=== PATIENT | female | born 1970 ===

== ENCOUNTER 2017-02-20 19:01 | Emergency (ER) | payer OTHER ==
[2017-02-20 19:18] VITALS: BP 125/70; PULSE 65; RESP 16; TEMP 99; O2SAT 100
--- NOTE | 2017-02-20 20:22 | ED PDOC ---
HPI: Female Pain Time Seen by Provider: 02/20/17 19:26 Chief Complaint (Nursing): Female Genitourinary Chief Complaint (Provider): vaginal discharge History Per: Patient History/Exam Limitations: no limitations Onset/Duration Of Symptoms: Days (x 1 year) Current Symptoms Are (Timing): Intermittent Episodes Additional Complaint(s): Padmini Gómez is a 46 year old female, with no previous medical history, who presents to the ED fro the evaluation of white vaginal discharge intermittently ongoing for the past year. Patient reports discharge after intercourse with her . She reports her and her are both monogamous and she was negative for STDs. Patient reports seeing an OBGYN 1 year ago who informed the patient she did not have anything. Patient denies any vaginal bleeding, urinary symptoms or abdominal pain. PMD: none provided Abnormal Vaginal Bleeding: No Past Medical History Reviewed: Historical Data, Nursing Documentation, Vital Signs Vital Signs: Last Vital Signs Temp 99.0 F 02/20/17 19:14 Pulse 65 02/20/17 19:14 Resp 16 02/20/17 19:14 BP 125/70 02/20/17 19:14 Pulse Ox 100 02/20/17 19:14 - Medical History PMH: No Chronic Diseases - Surgical History Surgical History: No Surg Hx - Family History Family History: States: Unknown Family Hx - Home Medications Home Medications: Ambulatory Orders Medication Instructions Recorded Doxycycline Monohydrate 100 mg PO BID #7 capsule 02/20/17 Fluconazole 200 mg PO ONCE #1 tablet 02/20/17 - Allergies Allergies/Adverse Reactions: Allergies Allergy/AdvReac Type Severity Reaction Status Date / Time acetaminophen [From Percocet] Allergy VOMITING Verified 02/20/17 19:14 codeine Allergy VOMITING Verified 02/20/17 19:14 morphine Allergy VOMITING Verified 02/20/17 19:14 oxycodone [From Percocet] Allergy VOMITING Verified 02/20/17 19:14 Review of Systems ROS Statement: Except As Marked, All Systems Reviewed And Found Negative Constitutional: Negative for: Fever, Chills Genitourinary Female: Positive for: Vaginal Discharge. Negative for: Dysuria, Frequency, Incontinence, Pelvic Pain Physical Exam - Reviewed Nursing Documentation Reviewed: Yes Vital Signs Reviewed: Yes - Physical Exam Appears: Positive for: Well, Non-toxic, No Acute Distress Gastrointestinal/Abdominal: Positive for: Normal Exam, Bowel Sounds, Soft. 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 Provider Scribe Attestation: All medical record entries made by the Scribe were at my direction and personally dictated by me. I have reviewed the chart and agree that the record accurately reflects my personal performance of the history, physical exam, medical decision making, and the department course for this patient. I have also personally directed, reviewed, and agree with the discharge instructions and disposition. Disposition - Clinical Impression Clinical Impression: Vaginal discharge - Disposition [facility] Disposition Time: 20:00 Condition: STABLE Prescriptions: Doxycycline Monohydrate 100 mg PO BID #7 capsule Fluconazole 200 mg PO ONCE #1 tablet Instructions: Pelvic Inflammatory Disease (ED), Vaginal Discharge (ED) Forms: [employer] (Azeri) Print Language: GUAMANIAN
== END 2017-02-20 20:25 | disposition home or self-care (01) ==
LOC: H.ER 19:01
DX: N73.9 Female pelvic inflammatory disease, unspecified (principal)

== ENCOUNTER 2017-06-03 15:04 | Emergency (ER) | payer OTHER ==
[2017-06-03 15:31] VITALS: PULSE 68; RESP 16; TEMP 99; O2SAT 100
--- NOTE | 2017-06-03 16:49 | ED PDOC ---
HPI: Back Time Seen by Provider: 06/03/17 15:40 Chief Complaint (Nursing): Back Pain Chief Complaint (Provider): Back pain History Per: Patient History/Exam Limitations: no limitations Onset/Duration Of Symptoms: Mins Current Symptoms Are (Timing): Still Present Quality Of Discomfort: "Pain" Additional Complaint(s): The patient is a 46yo female, presents to the ED for evaluation of back pain; patient states earlier today, she was attempting to bed down and she heard a "snap" after which her back pain started. Patient reports she has had similar symptoms 2x times before and was seen in the ED both times, she denies following up with a neurologist of back specialist for her symptoms. Patient reports she attempted to go to work today but was unable to stand the pain, prompting her visit to the ED. She denies any radiation of the pain, numbness, tingling, hematuria, incontinence and abdominal pain. Patient offers no additional medical complaints. Past Medical History Reviewed: Historical Data, Nursing Documentation, Vital Signs Vital Signs: Last Vital Signs Temp 99.0 F 06/03/17 15:29 Pulse 68 06/03/17 15:29 Resp 16 06/03/17 15:29 BP Pulse Ox 100 06/03/17 15:29 - Medical History PMH: No Chronic Diseases - Surgical History Surgical History: No Surg Hx - Family History Family History: States: Unknown Family Hx - Social History Current smoker - smoking cessation education provided: No Alcohol: None Drugs: Denies - Home Medications Home Medications: Ambulatory Orders Medication Instructions Recorded Doxycycline Monohydrate 100 mg PO BID #7 capsule 02/20/17 Fluconazole 200 mg PO ONCE #1 tablet 02/20/17 Cyclobenzaprine [Cyclobenzaprine 10 mg PO Q8 PRN #30 tab 06/03/17 HCl] Meloxicam [Mobic] 7.5 mg PO DAILY PRN #30 tab 06/03/17 Nitrofurantoin Macrocrystals 1 cap PO BID #14 cap 06/03/17 [Macrobid] - Allergies Allergies/Adverse Reactions: Allergies Allergy/AdvReac Type Severity Reaction Status Date / Time acetaminophen [From Percocet] Allergy VOMITING Verified 02/20/17 19:14 codeine Allergy VOMITING Verified 02/20/17 19:14 morphine Allergy VOMITING Verified 02/20/17 19:14 oxycodone [From Percocet] Allergy VOMITING Verified 02/20/17 19:14 Review of Systems ROS Statement: Except As Marked, All Systems Reviewed And Found Negative Genitourinary Female: Negative for: Dysuria, Frequency, Incontinence, Hematuria Musculoskeletal: Positive for: Back Pain Neurological: Negative for: Weakness, Numbness Physical Exam - Reviewed Nursing Documentation Reviewed: Yes Vital Signs Reviewed: Yes - Physical Exam Appears: Positive for: Non-toxic, Uncomfortable Head Exam: Positive for: ATRAUMATIC, NORMAL INSPECTION, NORMOCEPHALIC Skin: Positive for: Normal Color. Negative for: Rash Eye Exam: Positive for: Normal appearance Neck: Positive for: Normal, Supple Cardiovascular/Chest: Positive for: Regular Rate, Rhythm Respiratory: Positive for: Normal Breath Sounds. Negative for: Accessory Muscle Use, Respiratory Distress Gastrointestinal/Abdominal: Positive for: Normal Exam, Soft. Negative for: Tenderness Back: Positive for: Normal Inspection, Other (bilateral paralumbar tenderness). Negative for: L CVA Tenderness, R CVA Tenderness, Vertebral Tenderness Extremity: Positive for: Normal ROM. Negative for: Deformity, Swelling Neurologic/Psych: Positive for: Alert, Oriented. Negative for: Motor/Sensory Deficits - Laboratory Results Urine POC: Negative - ECG O2 Sat by Pulse Oximetry: 100 (RA) Pulse Ox Interpretation: Normal - Progress ED Course And Treament: LS spine x-ray: no fx Urine culture sent. Re-evaluation Time: 17:40 Condition: Re-examined, Improving,but remains with symptoms Medical Decision Making Medical Decision Making: Time: 1545 Impression: Back pain Plan: -- Flexeril 10 mg PO -- Toradol 15 mg IM -- XR lumbar spine Reassess Scribe Attestation: Documented by Felecia Rodriguez acting as a scribe for TORRI Jordan Provider Attestation: All medical record entries made by the Scribe were at my direction and personally dictated by me. I have reviewed the chart and agree that the record accurately reflects my personal performance of the history, physical exam, medical decision making, and the department course for this patient. I have also personally directed, reviewed, and agree with the discharge instructions and disposition. Disposition - Clinical Impression Clinical Impression: Back pain, UTI (urinary tract infection) - Patient ED Disposition Is Patient to be Admitted: No - Disposition Referrals: [facility] [Outside] [facility] [Outside] Disposition: Routine/Home Disposition Time: 17:40 Condition: IMPROVED Prescriptions: Cyclobenzaprine [Cyclobenzaprine HCl] 10 mg PO Q8 PRN #30 tab PRN Reason: Muscle Spasm Meloxicam [Mobic] 7.5 mg PO DAILY PRN #30 tab PRN Reason: Pain, Mild (1-3) Nitrofurantoin Macrocrystals [Macrobid] 1 cap PO BID #14 cap Instructions: Acute Low Back Pain (ED), Urinary Tract Infection in Women (ED) Forms: [employer] (Occitan), [facility] ED School/Work Excuse
--- NOTE | 2017-06-03 16:53 | RAD ---
PROCEDURE: Radiographs of the Lumbar Spine. HISTORY: pain No antecedent history of trauma provided COMPARISON: No prior. FINDINGS: BONES: Scoliosis, mild without secondary degenerative change. No listhesis. No fracture. DISC SPACES: Unremarkable. OTHER FINDINGS: None. IMPRESSION: No significant or acute findings to account for/ related to the clinical presentation.
[2017-06-03 17:21] LABS: RBC URINE 3 /hpf (0-3); URINE BACTERIA OCC (<OCC); URINE BILIRUBIN NEGATIVE (NEGATIVE); URINE BLOOD NEGATIVE (NEGATIVE); URINE COLOR YELLOW (YELLOW); URINE GLUCOSE (UA) NEG (Normal); URINE KETONE NEGATIVE (NEGATIVE); URINE LEUKOCYTE ESTERASE LARGE Leu/uL (Negative); URINE PROTEIN NEGATIVE (NEGATIVE); URINE UROBILINOGEN 0.2-1.0 mg/dL (0.2-1.0)
[2017-06-03 17:35] LABS: WBC URINE 24 /hpf (0-5)
== END 2017-06-03 18:24 | disposition home or self-care (01) ==
LOC: H.ER 15:04
DX: N39.0 Urinary tract infection, site not specified (principal)
CPT/HCPCS: 72100; 81003; 81025; 87086; 96372; 99282; J1885